=== PATIENT | female | born 1935 | race Caucasian/White ===

== ENCOUNTER 2017-05-27 08:17 | Emergency (ER) | payer MEDICARE, BC ==
[~2017-05-27] VITALS: Ht 157.5 cm; Wt 62.7 kg
[2017-05-27 08:21] VITALS: TEMP 98
[2017-05-27] MEDS ORDERED: TENORMIN 2525 MG/TAB PO (08:57)
[2017-05-27] MEDS ORDERED: ALEVE 220MG220 MG PO (08:57)
[2017-05-27 10:31] VITALS: BP 142/47; PULSE 62
[2017-06-12] MEDS ORDERED: ZESTORETIC 12.51 TA1 PO (18:43)
== END 2017-05-27 10:38 | disposition home or self-care (01) ==
LOC: COL.ER 08:17
DX: S09.90XA Unspecified injury of head, initial encounter (principal); S01.01XA Laceration without foreign body of scalp, initial encounter; M53.3 Sacrococcygeal disorders, not elsewhere classified; S00.03XA Contusion of scalp, initial encounter; W01.198A Fall on same level from slipping, tripping and stumbling with subsequent striking against other object, initial encounter; Y92.59 Other trade areas as the place of occurrence of the external cause; I10 Essential (primary) hypertension

== ENCOUNTER → 2017-06-03 | Emergency (ER) | payer MEDICARE, BC ==
[~2017-06-03] MED LIST: ALEVE 220MG220 MG PO; LIPITOR 10MG10 MG PO; LISINOPRIL-HCTZ 20-2; MIACALCIN NASA3.7 ML NS; NORVASC 10MG10 MG PO; SYNTHROID0.1 MG/TAB PO; TENORMIN 2525 MG/TAB PO; ZESTORETIC 12.51 TA1 PO
[2017-06-03 09:07] VITALS: BP 135/66; PULSE 59; TEMP 98.1
== END ==
LOC: COL.ER 09:02
DX: S01.01XD Laceration without foreign body of scalp, subsequent encounter (principal); X58.XXXD Exposure to other specified factors, subsequent encounter

== ENCOUNTER 2017-06-04 20:23 | Emergency (ER) | payer MEDICARE, BC ==
[~2017-06-04] VITALS: Ht 157.5 cm; Wt 61.8 kg
[~2017-06-04 20:23] MED LIST changes: -LIPITOR 10MG10 MG PO; -LISINOPRIL-HCTZ 20-2; -MIACALCIN NASA3.7 ML NS; -NORVASC 10MG10 MG PO; -SYNTHROID0.1 MG/TAB PO; -ZESTORETIC 12.51 TA1 PO
[2017-06-04 20:25] VITALS: TEMP 98.2
[2017-06-04] MEDS ORDERED: NORVASC 10MG10 MG PO (20:29)
[2017-06-04] MEDS ORDERED: SYNTHROID0.1 MG/TAB PO (20:30)
[2017-06-04] MEDS ORDERED: LIPITOR 10MG10 MG PO (20:30)
[2017-06-04] MEDS ORDERED: MIACALCIN NASA3.7 ML NS (20:30)
[2017-06-04] MEDS ORDERED: LISINOPRIL-HCTZ 20-2 (20:30)
[2017-06-04 21:42] VITALS: BP 153/76; PULSE 82
[2017-06-12] MEDS ORDERED: ZESTORETIC 12.51 TA1 PO (18:43)
== END 2017-06-04 21:47 | disposition home or self-care (01) ==
LOC: COL.ER 20:23
DX: S09.90XA Unspecified injury of head, initial encounter (principal); S00.03XA Contusion of scalp, initial encounter; I10 Essential (primary) hypertension; W01.10XA Fall on same level from slipping, tripping and stumbling with subsequent striking against unspecified object, initial encounter; Y92.89 Other specified places as the place of occurrence of the external cause; M54.2 Cervicalgia; S00.01XA Abrasion of scalp, initial encounter; Z91.81 History of falling; R40.2412 Glasgow coma scale score 13-15, at arrival to emergency department

== ENCOUNTER → 2017-06-12 | Emergency (ER) | payer MEDICARE, BC ==
[~2017-06-12] VITALS: Ht 152.4 cm; Wt 61.4 kg
[~2017-06-12] MED LIST changes: +LIPITOR 10MG10 MG PO; +LISINOPRIL-HCTZ 20-2; +MIACALCIN NASA3.7 ML NS; +NORVASC 10MG10 MG PO; +SYNTHROID0.1 MG/TAB PO; +ZESTORETIC 12.51 TA1 PO
[2017-06-12 17:50] VITALS: TEMP 98.9
[2017-06-12 18:31] LABS: BASO % 0.3 % (0.0-2.0); EOS # 0.2 (0.0-0.7); GRAN # 6.3 (1.4-6.5); GRAN % 68.1 % (42.2-75.2); HEMOGLOBIN 13.3 g/dl (12.5-16.0); LYMPH # 1.7 (1.2-3.4); LYMPH % 17.9 % (20.0-51.0); MEAN CELL VOLUME 81 fl (80.0-100.0); MEAN CORPUSCULAR HEMOGLOBIN 30 pg (27.0-31.0); MEAN CORPUSCULAR HGB CONC 38 g/dl (33.0-37.0); MEAN PLATELET VOLUME 9.3 fl (7.4-10.4); MONO # 1.1 (0.1-0.6); MONO % 11.3 % (1.7-9.3); PLATELET COUNT 323 K/mm3 (130-400); RED BLOOD COUNT 4.37 M/mm3 (4.10-5.30); REDCELL DISTRIBUTION WIDTH-CV 12.3 % (11.5-14.5); WHITE BLOOD COUNT 9.3 K/mm3 (4.8-10.8)
[2017-06-12 18:32] LABS: ALANINE AMINOTRANSFERASE 23 U/L (9-52); ALBUMIN 4.7 gm/dL (3.5-5.0); ALKALINE PHOSPHATASE 68 U/L (50-136); ANION GAP 13 mmol/L (7-16); BILIRUBIN,TOTAL 1.3 mg/dL (0.0-1.0); BLOOD UREA NITROGEN 11 mg/dL (7-17); CALCIUM 9.6 mg/dL (8.4-10.2); CARBON DIOXIDE 26 mmol/L (22-30); CREATININE, serum 0.74 mg/dL (0.52-1.25); GLUCOSE 117 mg/dL (74-106); HEMATOCRIT 35.5 % (37.0-47.0); MAGNESIUM 1.5 mg/dL (1.6-2.3); TOTAL PROTEIN 7.9 gm/dL (6.4-8.2)
[2017-06-12 18:36] LABS: CHLORIDE 72 mmol/L (98-107); POTASSIUM 2.6 mmol/L (3.4-5.0); SODIUM 112 mmol/L (137-145)
[2017-06-12 18:37] LABS: PROTHROMBIN TIME 10.9 SECONDS (9.7-12.8)
[2017-06-12 18:40] LABS: PARTIAL THROMBOPLASTIN TIME 31.4 SECONDS (26.0-37.0)
[2017-06-12 18:44] LABS: B-TYPE NATRIURETIC PEPTIDE 361 pg/mL (0-450); TROPONIN-I < 0.012 ng/mL (0.000-0.034)
[2017-06-12 19:02] LABS: THYROID STIMULATING HORMONE 0.941 uIU/mL (0.465-4.680)
[2017-06-12 19:38] LABS: PH 7 (5-8); SQUAMOUS EPITHELIAL 0-2 /hpf; URINE APPEARANCE Clear; URINE BACTERIA None Seen /hpf; URINE BILIRUBIN Negative (NEGATIVE); URINE BLOOD 2+ (NEGATIVE); URINE COLOR Yellow; URINE GLUCOSE Negative (NEGATIVE); URINE KETONE Trace (NEGATIVE); URINE UROBILINOGEN Negative (NEGATIVE); URINE WBC None Seen /hpf
[2017-06-12 19:46] VITALS: BP 156/80; PULSE 62
== END ==
LOC: COL.ER 17:49
PROVIDERS: Emergency Medicine
DX: E87.6 Hypokalemia (principal); E87.1 Hypo-osmolality and hyponatremia; E05.90 Thyrotoxicosis, unspecified without thyrotoxic crisis or storm; I10 Essential (primary) hypertension
CPT/HCPCS: J3475; J3480; J7030

== ENCOUNTER → 2017-06-21 | Outpatient (REF) ==
[2017-06-21 15:19] LABS: PH 7 (5-8); SQUAMOUS EPITHELIAL None Seen /hpf; URINE APPEARANCE Clear; URINE BACTERIA None Seen /hpf; URINE BILIRUBIN Negative (NEGATIVE); URINE BLOOD 1+ (NEGATIVE); URINE COLOR Straw; URINE GLUCOSE Negative (NEGATIVE); URINE KETONE Negative (NEGATIVE); URINE RBC 0-2 /hpf; URINE UROBILINOGEN Negative (NEGATIVE); URINE WBC >50 /hpf
== END ==
LOC: ZCOL.LAB 15:03
PROVIDERS: Internal Medicine
DX: Z01.89 Encounter for other specified special examinations (principal)

== ENCOUNTER → 2017-10-03 | Outpatient (CLI) | payer MEDICARE, BC | LOC: MC.RAD 08:52 | DX: Z12.31 Encounter for screening mammogram for malignant neoplasm of breast (principal) ==

== ENCOUNTER → 2018-10-15 | Outpatient (CLI) | payer MEDICARE, BC | LOC: SUN.CLI 10:55 | DX: E11.9 Type 2 diabetes mellitus without complications (principal) ==

== ENCOUNTER 2019-05-26 11:00 | Inpatient (IN) | payer MEDICARE, BC ==
[~2019-05-26] VITALS: Ht 157.5 cm; Wt 62.5 kg
--- NOTE | 2019-05-26 12:45 | NUR ---
Patient up to room 310, oriented to room, daughter at bedside. Call light within reach. Will complete admission once lab and aide are done with tasks.
[2019-05-26 12:52] VITALS: BP 157/54; PULSE 60; TEMP 98
[2019-05-26 12:58] LABS: BASO % 0.2 % (0.0-2.0); EOS # 0.1 (0.0-0.7); GRAN # 6.8 (1.4-6.5); GRAN % 73.1 % (42.2-75.2); HEMOGLOBIN 11.9 g/dl (12.5-16.0); LYMPH # 1.3 (1.2-3.4); LYMPH % 14.2 % (20.0-51.0); MEAN CELL VOLUME 87 fl (80.0-100.0); MEAN CORPUSCULAR HEMOGLOBIN 30 pg (27.0-31.0); MEAN CORPUSCULAR HGB CONC 35 g/dl (33.0-37.0); MEAN PLATELET VOLUME 9.2 fl (7.4-10.4); MONO % 10.5 % (1.7-9.3); PLATELET COUNT 251 K/mm3 (130-400); RED BLOOD COUNT 3.92 M/mm3 (4.10-5.30); REDCELL DISTRIBUTION WIDTH-CV 12.3 % (11.5-14.5)
[2019-05-26 13:12] LABS: ALBUMIN 4.5 gm/dL (3.5-5.0); BILIRUBIN,TOTAL 0.7 mg/dL (0.0-1.0); CALCIUM 9.3 mg/dL (8.4-10.2); CREATININE, serum 1.33 (0.52-1.25); TOTAL PROTEIN 7.8 gm/dL (6.4-8.2)
[2019-05-26] MEDS ORDERED: NORVASC 10MG10 MG PO (13:53)
[2019-05-26] MEDS ORDERED: TENORMIN 5050 MG/TAB PO (13:56)
[2019-05-26] MEDS ORDERED: TYLENOL PM EXTR1 TA1 PO (13:57)
[2019-05-26] MEDS ORDERED: ASPIRIN 81M81 MG/TA2 PO (13:59)
[2019-05-26] MEDS ORDERED: CALCIUM 600MG+D1 TAB PO (14:02)
[2019-05-26] MEDS ORDERED: PRINIVIL40 MG PO (14:06)
[2019-05-26] MEDS ORDERED: ZOFRAN ODT4 MG PO (14:08)
[2019-05-26] MEDS ORDERED: ALDACTONE 25MG25 M1 PO (14:09)
[2019-05-26] MEDS ORDERED: CARDURA4 MG PO (14:11)
[2019-05-26] MEDS ORDERED: TYLENOL 500MG500 MG PO (14:12)
--- NOTE | 2019-05-26 15:15 | NUR ---
Patient admission assessment complete. Med rec and allergies completed. Hospitalist aware of Pt arrival, has visited with pt. Pt A&O, on room air. Denies SOB, chest pain, vomiting. C/O some nausea, chronic back pain, dizziness. Pt uses walker to ambulate. Pt up to bathroom with assist. Pt currently has shingles on Lt side/hip/groin area. No open blisters, a few scabs and redness. pt denies itchiness or pain. Pt placed on contact precautions. No other skin issues noted at this time. Lungs clear, Heart RRR, pulses strong bilaterally. Pt on 1000 ml free water restriction. No other needs at this time. Call light within reach.
--- NOTE | 2019-05-26 16:45 | NUR ---
Patient RUSTAM IV started by DARYA Lees. This nurse attempted twice with no success. 1 attempt by DARYA Lees. Blood return, flushes well, no complications. No other needs at this time. Patient stated feeling "a little nauseous". This nurse told Pt to let someone know if she feel that she needs something for the nausea. Pt able to tolerate liquids and food but does not have much of an appetite. No other needs at this time. Call light within reach. Daughter at bedside.
[2019-05-26 17:24] VITALS: BP 161/50; PULSE 59; TEMP 98.1
--- NOTE | 2019-05-26 18:15 | NUR ---
patient assisted to bathroom, standby. Patient wanted to try and have BM. Per pt she drank "two 16 oz red drinks this morning and then had a CT scan of abdomen". patient stated she had some diarrhea and the toilet was red "like the color of the drinks she had this morning". Patient is A&O, no other complaints at this time.
--- NOTE | 2019-05-26 19:04 | NUR ---
Report given to DARYA Vaughn.
[2019-05-26 20:00] VITALS: BP 145/88; PULSE 76; TEMP 98.2
--- NOTE | 2019-05-26 21:00 | NUR ---
Patient assessed at this time. Alert and oriented, and able to make needs known. Daughter at bedside and staying over night. Complained of level 8 pain to left leg/back. Requested Tylenol PM. No orders for medication. Also stated that she takes Doxasosin at night. Called and spoke with PAPER FOLDING MACHINE OPERATOR at 2044. Order received for Tylenol ES 500 mg PO PRN. Also, changed Doxasosin to bedtime as requested. Medication given to patient as ordered. Also given PRN Zofran for nausea. Peripheral IV to right upper arm flushed. Site is patent, and without redness, warmth, swelling, and pain. LS CTA. Respirations even and unlabored. Denies SOB and dyspnea. Occasional moist, productive cough, but unable to observe any sputum. HRR. BSAx4. Abdomen soft and non-tender. Urine is clear and yellow. Non-pitting edema to BLE. Shingles rash to left back/hip/groin/abdomen area. Rash is dry, scabbed over, and without any drainage. Education provided on free water restriction of 1000 ml, which includes water, tea, and coffee. Encouraged to drink juice with medications, which patient did. Questions answered. Voices no other questions, needs, or concerns. Extra pillow and blanket kate to room as requested. Resting in bed with call light within reach.
[2019-05-27 01:02] VITALS: BP 125/47; PULSE 51; TEMP 97.8
--- NOTE | 2019-05-27 06:38 | NUR ---
Patient has received PRN APAP around 0100. No further requests for PRN medication at this time. Voices no questions, needs, or concerns at this time. Sitting up on side of the bed. Daughter remains at bedside. Call light is within reach.
--- NOTE | 2019-05-27 06:52 | NUR ---
Report given to day shift nurse.
[2019-05-27 07:33] LABS: BASO % 0.3 % (0.0-2.0); EOS # 0.2 (0.0-0.7); EOS % 2.2 % (0-4.0); GRAN # 4.2 (1.4-6.5); GRAN % 57.8 % (42.2-75.2); LYMPH # 1.9 (1.2-3.4); LYMPH % 26.6 % (20.0-51.0); MEAN CELL VOLUME 86 fl (80.0-100.0); MEAN CORPUSCULAR HEMOGLOBIN 31 pg (27.0-31.0); MEAN CORPUSCULAR HGB CONC 36 g/dl (33.0-37.0); MEAN PLATELET VOLUME 9.5 fl (7.4-10.4); MONO # 0.9 (0.1-0.6); PLATELET COUNT 252 K/mm3 (130-400); RED BLOOD COUNT 3.59 M/mm3 (4.10-5.30); REDCELL DISTRIBUTION WIDTH-CV 12.5 % (11.5-14.5)
[2019-05-27 07:38] LABS: HEMATOCRIT 30.7 % (37.0-47.0)
[2019-05-27 07:45] LABS: CALCIUM 8.9 mg/dL (8.4-10.2); CREATININE, serum 1.46 (0.52-1.25); MAGNESIUM 1.7 mg/dL (1.6-2.3); PHOSPHOROUS 3.7 mg/dL (2.5-4.5); POTASSIUM 4.5 mmol/L (3.4-5.0)
[2019-05-27 08:21] VITALS: BP 113/33; PULSE 56; TEMP 98.1
--- NOTE | 2019-05-27 11:15 | NUR ---
Pt awake and alert, family in room, talkative and appropriate, shift assessmernts complete, left Pt call light in reach, bed in lowest position.
[2019-05-27 11:53] VITALS: BP 133/39; PULSE 52; TEMP 98
--- NOTE | 2019-05-27 13:45 | NUR ---
SW met with patient and daughter to discuss discharge planning. Patient lives independently at home alone. Patient's daughter is supportive. Patient's PCP is Dr Rapp and she obtains prescriptions from [facility]. Patient does not use any DME or home health services. SW will continue to follow and assist with any discharge needs.
[2019-05-27 16:02] VITALS: BP 154/91; PULSE 57; TEMP 98
[2019-05-27 17:33] LABS: CALCIUM 8.7 mg/dL (8.4-10.2); CREATININE, serum 1.57 (0.52-1.25); POTASSIUM 4.6 mmol/L (3.4-5.0)
--- NOTE | 2019-05-27 18:15 | NUR ---
Pt rested comfortably during the day, IV site changed to left wrist, VS stable.
[2019-05-27 20:10] VITALS: BP 105/48; PULSE 56; TEMP 98.6
--- NOTE | 2019-05-27 21:20 | NUR ---
Patient assessed at this time. Questions answered from daughter and patient. Reports level 5 pain to left hip/back. Given PRN Tylenol ES per orders. Peripheral IV to left wrist. NS running at 125 ml/hr. Site is without redness, warmth, swelling, and pain. LS CTA. Respirations even and unlabored. Denies SOB and dyspnea. HRR. BSAx4. Abdomen soft and non-tender. Continent of bowel and bladder. Calls for assistance with toileting. Urine is clear and yellow. No edema noted. Assisted back to bed as requested. Voices no questions, needs, or concerns at this time. Call light is within reach. Daughter at bedside.
[2019-05-27 21:45] LABS: CALCIUM 8.7 mg/dL (8.4-10.2); CREATININE, serum 1.6 (0.52-1.25); POTASSIUM 4.9 mmol/L (3.4-5.0)
[2019-05-28] VITALS (7 sets, daily range): BP systolic 112–140; BP diastolic 35–67; PULSE 56–74; TEMP 97.7–98.7
--- NOTE | 2019-05-28 01:04 | NUR ---
Given PRN Zofran per request for nausea at approximately 2340. Patient states that she took medication every 8 hours scheduled at home, and is requesting medication to be scheduled while in the hospital.
--- NOTE | 2019-05-28 05:16 | NUR ---
Received PRN Tylenol around 0130 for level 6 pain to left hip/back area. Resting in bed with eyes closed at this time. Call light is within reach. Daughter remains at bedside.
[2019-05-28 06:11] LABS: BASO % 0.1 % (0.0-2.0); EOS # 0.3 (0.0-0.7); EOS % 3.8 % (0-4.0); GRAN # 5.1 (1.4-6.5); GRAN % 62.9 % (42.2-75.2); LYMPH # 1.8 (1.2-3.4); LYMPH % 21.8 % (20.0-51.0); MEAN CELL VOLUME 86 fl (80.0-100.0); MEAN CORPUSCULAR HGB CONC 35 g/dl (33.0-37.0); MEAN PLATELET VOLUME 9.7 fl (7.4-10.4); MONO # 0.9 (0.1-0.6); MONO % 10.5 % (1.7-9.3); PLATELET COUNT 209 K/mm3 (130-400); RED BLOOD COUNT 3.26 M/mm3 (4.10-5.30); REDCELL DISTRIBUTION WIDTH-CV 12.7 % (11.5-14.5)
[2019-05-28 06:23] LABS: HEMATOCRIT 28.1 % (37.0-47.0); HEMOGLOBIN 9.9 g/dl (12.5-16.0); MEAN CORPUSCULAR HEMOGLOBIN 30 pg (27.0-31.0)
[2019-05-28 06:34] LABS: CALCIUM 8.3 mg/dL (8.4-10.2); CREATININE, serum 1.26 (0.52-1.25); POTASSIUM 4.7 mmol/L (3.4-5.0)
--- NOTE | 2019-05-28 06:53 | NUR ---
Report given to day shift nurse.
--- NOTE | 2019-05-28 15:58 | NUR ---
ARMANDO met with patient about home health recommendations. ARMANDO provided the medicare.gov resource list. Patient chose [facility]. ARMANDO contacted Cassy from [facility] and faxed referral.
--- NOTE | 2019-05-28 18:45 | NUR ---
PT HAD UNEVENTFUL DAY. STRICT I&O'S MAINTAINED. IV FLUIDS INFUSING WITHOUT ISSUE. PT HAS BEEN UP AMBULATING IN ROOM, AND SITTING UP IN RECLINER/ OR EDGE OF BED. HAS BEEN PLEASENT AND COOPERATIVE WITH CARES.
[2019-05-28 20:56] LABS: CALCIUM 8.8 mg/dL (8.4-10.2); CREATININE, serum 1.3 (0.52-1.25); POTASSIUM 4.7 mmol/L (3.4-5.0)
--- NOTE | 2019-05-28 21:05 | NUR ---
Patient assessed at this time. Reported level 8 pain to left hip/back area. Given PRN APAP as requested. NS running at 100 ml/hr to peripheral IV to left wrist. Site is without redness, warmth, swelling, and pain. Denies having SOB and dyspnea. Patient's voice is hoarse. Does have an occasional moist cough. Reports phlegm is thin and white. LS CTA. Respirations even and unlabored. HRR. BSAx4. Abdomen soft and non-tender. Shingles rash to back/left hip/abd/groin area. All areas a scabbed and dry. No open areas. No edema noted. Daughter leaving for the night. Bed put in the lowest position. Call light within reach. Bed alarm put on for safety. Voices no questions, needs, or concerns at this time.
--- NOTE | 2019-05-29 03:01 | NUR ---
Patient resting in bed with eyes closed at this time. Has declined PRN Zofran and Tylenol when asked. Voices no questions, needs, or concerns. Call light is within reach. Bed in lowest position. Bed alarm is on.
[2019-05-29 05:00] VITALS: BP 136/33; PULSE 58; TEMP 98.1
--- NOTE | 2019-05-29 05:49 | NUR ---
Patient had received PRN Tylenol around 0400 as requested to back/left hip pain. Declined PRN Zofran, stating that she has not had any nausea, and is feeling better than yesterday. Denied having any questions or concerns at that time. Resting in bed with eyes closed at this time. Call light is within reach.
[2019-05-29 06:47] LABS: BASO % 0.3 % (0.0-2.0); EOS # 0.3 (0.0-0.7); EOS % 4.1 % (0-4.0); GRAN # 5.3 (1.4-6.5); GRAN % 69.5 % (42.2-75.2); LYMPH # 1.2 (1.2-3.4); LYMPH % 16.1 % (20.0-51.0); MEAN CELL VOLUME 88 fl (80.0-100.0); MEAN CORPUSCULAR HGB CONC 34 g/dl (33.0-37.0); MEAN PLATELET VOLUME 9.6 fl (7.4-10.4); MONO # 0.7 (0.1-0.6); MONO % 9.2 % (1.7-9.3); PLATELET COUNT 202 K/mm3 (130-400); RED BLOOD COUNT 3.27 M/mm3 (4.10-5.30)
[2019-05-29 06:51] LABS: HEMATOCRIT 28.9 % (37.0-47.0); HEMOGLOBIN 9.9 g/dl (12.5-16.0); MEAN CORPUSCULAR HEMOGLOBIN 30 pg (27.0-31.0)
[2019-05-29 07:07] LABS: CREATININE, serum 1.09 (0.52-1.25); POTASSIUM 4.7 mmol/L (3.4-5.0)
[2019-05-29 07:20] VITALS: BP 115/41; PULSE 49; TEMP 98.2
--- NOTE | 2019-05-29 07:50 | NUR ---
Report given to day shift nurse.
--- NOTE | 2019-05-29 08:45 | NUR ---
Pt sitting up in bed, denies any nausea at this time. Dr. San in room, discussed sending pt home, pt worried about going home and taking care of herself for the next couple of days. social services aide to look into home health or placement. Completed morning assessment. Scabs noted on left backside, abdomen and groin, dry and scabbed over. Denies any pain at this time. Will contiue to monitor. Call light in reach.
--- NOTE | 2019-05-29 11:00 | NUR ---
ARMANDO met with patient about discharge today. Patient reports he daughter is not feeling well and patient would prefer to discharge tomorrow. SW informed patient that the hospital is not able to keep patients in the hospital longer than medically necessary. ARMANDO inquired if patient would like to go to a senior living facility. Patient reports she does not. Patient understands that she is cleared by the doctor to discharge today with home health services. Patient will discharge later this afternoon. ARMANDO presented IMT to patient, she signed and did not request a copy. ARMANDO also contacted patient's daugher, Latricia ([phone]), to inform her of discharge. Latricia will pick patient up later today and is planning to stay with patient this weekend. ARMANDO will fax discharge orders to [facility] for senior living, PT, and OT. Patient will likely be seen by [facility] tomorrow (05/30).
[2019-05-29 11:34] VITALS: BP 128/43; PULSE 54; TEMP 97.8
--- NOTE | 2019-05-29 14:15 | NUR ---
All discharge paperwork give, all questions asked and answered. INT to LW removed, catheter tip intact, no redness or swelling noted. Pt called daughter for ride, will hit call light when daughter arrives.
--- NOTE | 2019-05-29 14:38 | NUR ---
Pt escorted out via Wheelchair by [facility] staff. All belongings with pt.
== END 2019-05-29 14:40 | disposition home health service (06) | DRG 641 ==
LOC: MEDICAL 11:00
PROVIDERS: Internal Medicine; Physician Assistant; ADMIT Hospitalist
DX: E87.1 Hypo-osmolality and hyponatremia (principal); N17.9 Acute kidney failure, unspecified; E22.2 Syndrome of inappropriate secretion of antidiuretic hormone; K57.30 Diverticulosis of large intestine without perforation or abscess without bleeding; L82.1 Other seborrheic keratosis; I10 Essential (primary) hypertension; E86.1 Hypovolemia; E03.9 Hypothyroidism, unspecified; E78.5 Hyperlipidemia, unspecified; E87.2 Acidosis; D64.9 Anemia, unspecified; Z88.2 Allergy status to sulfonamides; Z88.8 Allergy status to other drugs, medicaments and biological substances; Z86.19 Personal history of other infectious and parasitic diseases
CPT/HCPCS: 99222-AI; 99231-AI; 99232-AI; 99239; J1644; J7030

== ENCOUNTER → 2019-11-13 | Outpatient (CLI) | payer MEDICARE, BC ==
[~2019-11-13] MED LIST changes: +ALDACTONE 25MG25 M1 PO; +ASPIRIN 81M81 MG/TA2 PO; +CALCIUM 600MG+D1 TAB PO; +CARDURA4 MG PO; +PRINIVIL40 MG PO; +TENORMIN 5050 MG/TAB PO; +TYLENOL 500MG500 MG PO; +TYLENOL PM EXTR1 TA1 PO; +ZOFRAN ODT4 MG PO
== END ==
LOC: MC.RAD 10:00
DX: Z12.31 Encounter for screening mammogram for malignant neoplasm of breast (principal)

== ENCOUNTER 2019-12-11 18:59 | Emergency (ER) | payer MEDICARE, BC ==
[~2019-12-11] VITALS: Ht 157.5 cm; Wt 62.7 kg
[2019-12-11 19:05] VITALS: TEMP 97.5
[2019-12-11 20:00] VITALS: BP 162/59; PULSE 67
== END 2019-12-11 20:15 | disposition home or self-care (01) ==
LOC: COL.ER 18:59
DX: R04.0 Epistaxis (principal); I10 Essential (primary) hypertension